=== PATIENT | male | born 1950 | race Caucasian/White ===

== ENCOUNTER → 2019-06-20 17:00 | Outpatient (CLI) | payer MEDICARE, SELFPAY ==
--- NOTE | 2019-06-24 15:22 | PM.PFT.1 ---
Pulmonary Function Test Referral & Results Date Patient Seen: 06/20/19 Requesting provider: Gaudencio Joel Results: The spirometry demonstrates an FVC of 3.10 L which is 65% of predicted. The FEV1 was measured at 1.23 L which is 35% of predicted. The FEV1/FVC ratio was 40 which is 53% of predicted. Following the administration of bronchodilator there was a 64% improvement in FEV1 and a 255% improvement in FEF 25-75%. Lung volumes show an SVC of 3.29 L which is 68% of predicted. The diffusing capacity was measured at 17.72 which is 52% of predicted. No hemoglobin value was provided, so no correction for potential anemia could be made, if appropriate. The maximum voluntary ventilation was reduced Interpretation: This study demonstrates moderately severe obstructive lung disease with evidence of significant benefit following bronchodilator administration based on significant improvements in FEV1 and FEF 25-75% as above There is also mild restrictive lung disease There is also moderate disease of the capillary alveolar level based on reduction in diffusing capacity
== END ==
PROVIDERS: Visit Provider Family Medicine
DX: J98.8 Other specified respiratory disorders (principal); R06.02 Shortness of breath; F17.200 Nicotine dependence, unspecified, uncomplicated
CPT/HCPCS: 94060; 94726; 94729

== ENCOUNTER → 2020-11-09 07:53 | Outpatient (CLI) | payer MEDICARE, SELFPAY ==
[2020-11-09 09:34] LABS: Alanine Aminotransferase 20 IU/L (<50); Albumin Globulin Ratio 1.7 (1.0-2.8); Alkaline Phosphatase 65 U/L (38-126); Aspartate Aminotransferase 22 IU/L (17-59); BUN Creatinine Ratio 14.9 (6-22); Bilirubin Total 0.5 mg/dL (0.2-1.3); Blood Urea Nitrogen 18 mg/dL (9-20); Calcium 9.4 mg/dL (8.4-10.2); Carbon Dioxide 30 mmol/L (22-32); Chloride 103 mmol/L (98-107); Cholesterol 195 mg/dL (140-199); Estimated Glomerular Filt Rate 59.6 mL/min (>60); Globulin 2.4 g/dL (1.7-4.1); Glucose 105 mg/dL (80-110); HDL Cholesterol 55 mg/dL (40-60); HEMOLYSIS < 15 (0-50); LDL Cholesterol Calculated 119 mg/dL (<100); Potassium 4.6 mmol/L (3.4-5.1); Sodium 139 mmol/L (137-145); Total Protein 6.4 g/dL (6.3-8.2); Triglycerides 104 mg/dL (35-150)
[2020-11-09 10:00] LABS: TSH w/ Reflex to FT4 1.02 uIU/mL (0.47-4.68)
== END ==
PROVIDERS: PCP Family Medicine; Referring Provider Family Medicine; Visit Provider Family Medicine
DX: E78.5 Hyperlipidemia, unspecified (principal); F41.0 Panic disorder [episodic paroxysmal anxiety]
CPT/HCPCS: 36415; 80053; 80061; 84443

== ENCOUNTER → 2022-01-03 09:35 | Outpatient (CLI) | payer MEDICARE, SELFPAY ==
[2022-01-03 10:47] LABS: Creatinine Urine Random 78.1 mg/dL
[2022-01-03 10:52] LABS: Microalbumi Creatinin Ratio Ur 10.2 ug/mg CR (<30); Microalbumin Urine Random 0.8 mg/dL (0-1.6)
[2022-01-03 11:33] LABS: Add Manual Diff / Slide Review NO; Basophils Absolute Auto 100 /uL (0-100); Basophils Percent Auto 1.4 % (0-2); Eosinophils Absolute Auto 200 /uL (0-450); Hemoglobin 13.6 g/dL (13.5-17.5); Lymphocytes Absolute Auto 1400 /uL (1100-4500); Lymphocytes Percent Auto 22.7 % (25-40); Mean Corpuscular HGB Conc 34.1 % (30-36); Mean Corpuscular Hemoglobin 31.6 PG (26-34); Mean Corpuscular Volume 92.6 fL (80-100); Monocytes Absolute Auto 400 /uL (0-900); Monocytes Percent Auto 6.4 % (3-14); Neutrophils Absolute Auto 4000 /uL (1500-7000); Neutrophils Percent Auto 65.5 % (50-75); Platelet Count 252 X10^3/uL (150-400); Red Blood Cell Count 4.32 X10^6/uL (4.5-5.9); Red Cell Distribution Width 13.3 % (11.6-14.8); White Blood Cell Count 6.1 X10^3/uL (4.5-11.0)
[2022-01-03 11:50] LABS: Alanine Aminotransferase 19 IU/L (<50); Albumin Globulin Ratio 1.6 (1.0-2.8); Alkaline Phosphatase 57 U/L (38-126); Aspartate Aminotransferase 26 IU/L (17-59); BUN Creatinine Ratio 12.3 (6-22); Bilirubin Total 0.7 mg/dL (0.2-1.3); Blood Urea Nitrogen 13 mg/dL (9-20); Calcium 9.2 mg/dL (8.4-10.2); Carbon Dioxide 27 mmol/L (22-32); Chloride 105 mmol/L (98-107); Cholesterol 182 mg/dL (140-199); Estimated Glomerular Filt Rate > 60 mL/min (>60); Globulin 2.5 g/dL (1.7-4.1); Glucose 84 mg/dL (80-110); HDL Cholesterol 70 mg/dL (40-60); HEMOLYSIS < 15 (0-50); LDL Cholesterol Calculated 97 mg/dL (<100); Potassium 4.3 mmol/L (3.4-5.1); Sodium 139 mmol/L (137-145); Total Protein 6.5 g/dL (6.3-8.2); Triglycerides 76 mg/dL (35-150)
[2022-01-03 12:14] LABS: Prostate Specific Antigen Scrn 1.99 ng/mL (0.1-4.0)
[2022-01-03 12:25] LABS: TSH w/ Reflex to FT4 0.84 uIU/mL (0.47-4.68)
== END ==
PROVIDERS: PCP Family Medicine; Referring Provider Family Medicine; Visit Provider Family Medicine
DX: E78.2 Mixed hyperlipidemia (principal); Z12.5 Encounter for screening for malignant neoplasm of prostate; I10 Essential (primary) hypertension; J44.9 Chronic obstructive pulmonary disease, unspecified; N40.0 Benign prostatic hyperplasia without lower urinary tract symptoms
CPT/HCPCS: 36415; 80053; 80061; 82043; 82570; 84443; 85025; G0103

== ENCOUNTER → 2023-11-21 11:09 | Outpatient (CLI) | payer MEDICARE, SELFPAY ==
[2023-11-21 12:32] LABS: Add Manual Diff / Slide Review NO; Basophils Absolute Auto 100 /uL (0-100); Basophils Percent Auto 2.2 % (0-2); Eosinophils Absolute Auto 200 /uL (0-450); Eosinophils Percent Auto 4.1 % (2-4); Hematocrit 41.7 % (41-53); Hemoglobin 14.2 g/dL (13.5-17.5); Lymphocytes Absolute Auto 1500 /uL (1100-4500); Lymphocytes Percent Auto 25.7 % (25-40); Mean Corpuscular HGB Conc 34.1 % (30-36); Mean Corpuscular Volume 93.7 fL (80-100); Monocytes Absolute Auto 400 /uL (0-900); Monocytes Percent Auto 7.7 % (3-14); Neutrophils Absolute Auto 3500 /uL (1500-7000); Neutrophils Percent Auto 60.3 % (50-75); Platelet Count 265 X10^3/uL (150-400); Red Blood Cell Count 4.45 X10^6/uL (4.5-5.9); Red Cell Distribution Width 13.2 % (11.6-14.8); White Blood Cell Count 5.8 X10^3/uL (4.5-11.0)
[2023-11-21 12:52] LABS: HEMOLYSIS < 15 (0-50)
[2023-11-21 13:01] LABS: Alanine Aminotransferase 21 IU/L (<50); Albumin Globulin Ratio 1.6 (1.0-2.8); Alkaline Phosphatase 71 U/L (38-126); Aspartate Aminotransferase 25 IU/L (17-59); BUN Creatinine Ratio 13.1 (6-22); Bilirubin Total 0.7 mg/dL (0.2-1.3); Blood Urea Nitrogen 13 mg/dL (9-20); Calcium 9.4 mg/dL (8.4-10.2); Carbon Dioxide 30 mmol/L (22-32); Chloride 105 mmol/L (98-107); Cholesterol 191 mg/dL (140-199); Estimated Glomerular Filt Rate > 60 mL/min (>60); Globulin 2.5 g/dL (1.7-4.1); Glucose 101 mg/dL (80-110); HDL Cholesterol 71 mg/dL (40-60); LDL Cholesterol Calculated 109 mg/dL (<100); Potassium 4.3 mmol/L (3.4-5.1); Sodium 137 mmol/L (137-145); Total Protein 6.5 g/dL (6.3-8.2); Triglycerides 54 mg/dL (35-150)
[2023-11-21 13:33] LABS: TSH w/ Reflex to FT4 0.57 uIU/mL (0.47-4.68)
[2023-11-21 18:11] LABS: Hep C Virus Ab w/Reflex Quant NEGATIVE s/c (NEGATIVE)
[2023-11-22 11:33] LABS: Prostate Specific Antigen Scrn 2.41 ng/mL (0.1-4.0)
== END ==
PROVIDERS: PCP Family Medicine; Referring Provider Family Medicine; Visit Provider Family Medicine
DX: F31.9 Bipolar disorder, unspecified (principal); I10 Essential (primary) hypertension; Z12.5 Encounter for screening for malignant neoplasm of prostate; J44.9 Chronic obstructive pulmonary disease, unspecified; E78.5 Hyperlipidemia, unspecified; N40.0 Benign prostatic hyperplasia without lower urinary tract symptoms
CPT/HCPCS: 36415; 80053; 80061; 84443; 85025; 86803; G0103

== ENCOUNTER → 2023-11-22 13:16 | Outpatient (CLI) | payer MEDICARE, SELFPAY ==
[2023-11-22 16:35] LABS: Creatinine Urine Random 317.7 mg/dL
[2023-11-22 16:39] LABS: Microalbumi Creatinin Ratio Ur 3.4 ug/mg CR (<30); Microalbumin Urine Random 1.1 mg/dL (0-1.6)
== END ==
PROVIDERS: PCP Family Medicine; Referring Provider Family Medicine; Visit Provider Family Medicine
DX: F31.9 Bipolar disorder, unspecified (principal); I10 Essential (primary) hypertension; J44.9 Chronic obstructive pulmonary disease, unspecified; E78.5 Hyperlipidemia, unspecified; N40.0 Benign prostatic hyperplasia without lower urinary tract symptoms
CPT/HCPCS: 82043; 82570

== ENCOUNTER 2024-10-28 10:47 | Day surgery (SDC) | payer MEDICARE, MEDICAID, SELFPAY ==
[2024-10-20 15:20] VITALS: BMI 28.4
[2024-10-28] VITALS (8 sets, daily range): BP systolic 123–168; BP diastolic 72–97; PULSE 59–68; RESP 12–16; TEMP 36.2–36.3; O2SAT 96–100; BMI 28.4
[2024-10-28] MEDS: LACTATED RINGERS 1,000 ML 42 ML IV (10:54)
--- NOTE | 2024-10-28 11:12 | P.HP_ITS ---
History of Present Illness History of Present Illness Date Patient Seen: 10/28/24 Time Patient Seen: 11:12 Chief complaint: Left Hernia Repair - Inguinal Narrative: 74-year-old white male, previously had seen Dr. Lee regarding his recurrent left inguinal hernia. He was instructed to quit smoking. I am suspicious that he is still smokes since our last office visit, but he desires to proceed with an increased risk of recurrence and post-operative pain. He does not have any obstructive symptoms, but has chronically incarcerated fat [facility] Medical History Onychomycosis Hypertension Macular degeneration Sleep apnea (~1997) COPD (chronic obstructive pulmonary disease) (~2018) Substance abuse (~2001) Anxiety (~1999) Measles (~1955) Chicken pox (~1956) Glaucoma Cataracts, bilateral (~2017) BPH (benign prostatic hyperplasia) Hyperlipidemia Panic disorder Major depressive disorder, recurrent, severe w/o psychotic behavior (~1989) Surgical History Anesthesia Amputation of left middle finger (~2006) History of tonsillectomy (~1995) History of hernia repair (~2001) Family History Father Hypertension Grandmother Stroke Grandmother Depression Anxiety Mental health problem Social History marital status: unmarried,single household members: none lives independently: Yes occupational status: previously employed Smoking Status: Former smoker alcohol intake: former substance use type: does not use Meds Home Medications and Allergies Home Medications Medication Instructions Recorded Confirmed Type amlodipine 5 mg tablet 10 mg (2 x 5 mg) PO DAILY #180 tabs 11/22/23 10/28/24 Rx atorvastatin 20 mg tablet 20 mg PO DAILY #90 tabs 11/22/23 10/28/24 Rx tamsulosin 0.4 mg capsule 0.4 mg PO BEDTIME #90 caps 11/22/23 09/17/24 Rx losartan 50 mg tablet 25 mg PO DAILY 12/10/23 10/28/24 History trazodone 50 mg tablet 100 mg (2 x 50 mg) PO BEDTIME PRN 03/14/24 10/28/24 Rx insomnia #60 tabs varenicline tartrate 0.5 mg (11)-1 See Rx Instructions PO PER PKG DIR 07/14/24 10/28/24 Rx mg (42) tablets in a dose pack #53 ea (Chantix Starting Month Box) aspirin PO .prn 09/17/24 09/17/24 History ibuprofen PO .prn 09/17/24 09/17/24 History aripiprazole 10 mg tablet 10 mg PO BEDTIME #30 tabs 10/13/24 10/28/24 Rx bupropion HCl 150 mg tablet,12 hr 150 mg PO BID #60 ea 10/13/24 10/28/24 Rx sustained-release hydroxyzine HCl 50 mg tablet 50 mg PO BID PRN severe anxiety 10/13/24 10/28/24 Rx #30 tabs Allergies Allergy/AdvReac Type Severity Reaction Status Date / Time tree and shrub pollen Allergy Mild Congested Verified 10/28/24 10:53 dark chocolate Allergy Intermediate hives, Uncoded 09/17/24 12:55 sinus problems mold Allergy Mild Headache, Uncoded 09/17/24 12:55 sinus stuff Review of Systems Review of Systems ROS: Yes All systems reviewed with the patient and are negative except as otherwise documented Exam Narrative Exam Narrative: Gen: NAD, sitting comfortably in bed, appears well HEENT: Sclera are anicteric, head is normocephalic and atraumatic, trachea is midline. CV: RRR, no JVD Resp: clear to auscultation bilaterally, equal chest wall movement bilaterally Abd: soft, nontender, normoactive bowel sounds. Recurrent left inguinal hernia Ext: no edema, full range of motion Neuro: Cranial nerves II-XII grossly intact, no focal deficits Skin: No erythema or ecchymosis Assessment & Plan Assessment and plan (1) Recurrent left inguinal hernia: Status: Acute (2) Bipolar depression: Status: Acute (3) Smoker: Status: Acute Assessment & Plan narrative: Risks include but are not limited to bleeding, infection, 5% chance of chronic pain, 1 in a 1000 chance of needing mesh explantation in the future, 2% chance of recurrence of the hernia. Risks of observation include a 50% chance over the next 10 years of worsening pain that would drive him to have surgery regardless, unlikely chance of incarceration or strangulation. Patient agrees to proceed with: Open repair of recurrent left inguinal hernia with mesh Time-Based Coding :: [TOTAL MINUTES] spent with patient and on the chart (including review of chart, obtaining history, exam, reviewing outside data, placing orders, documenting exam and treatment plan, and counseling patient) on [DATE]. PROFEE Correspondence Section Supervisor Document charge(s): No
[2024-10-28] MEDS: CEFAZOLIN 2 GM/100 ML PREMIX 100 ML IV (11:33)
--- NOTE | 2024-10-28 11:39 | SUR.OPER ---
Supine on padded OR bed, head on pillow, arms secured on padded arm boards at <90 degrees abduction, legs uncrossed, safety belt at thigh, tape over blanket over lower legs.
[2024-10-28] MEDS: BUPIVACAINE 0.5% W/ EPI (PF) 30 ML VIAL 20 ML INJ (11:43)
[2024-10-28] MEDS: LIDOCAINE 1% 20 ML INJ (11:44)
--- NOTE | 2024-10-28 12:19 | PM.OP.1 ---
Operative Date/Time/Diagnoses Date of procedure: 10/28/24 Time of procedure: 12:19 Pre-op diagnosis: recurrent left inguinal hernia Post-op diagnosis: same Procedure & Clinicians Procedure: Open repair of recurrent left inguinal hernia with mesh Same procedure as scheduled: Yes Indications: Symptomatic recurrent left inguinal hernia Surgeon: Chuy Lindquist Telephone Collector: Po Dunbar Click Yes if Unassisted: No Anesthesia Type: MAC +/- Operative Notes Findings: Indirect defect with large cord lipoma Closure Type: primary Specimen(s): none sent Prosthetic devices, grafts, tissues, transplants, or devices: Large Bard PerFix plug and patch Estimated Blood Loss (mL): 15 Blood products transfused: none Procedure in detail: Patient was brought to the operating room suite. General anesthesia was induced. The groin was shaved prepped and draped in the usual fashion. Total 30 mL of 0.5% Marcaine was used to perform an ilioinguinal nerve block and cord block and field block. Transverse incision was made over the groin and carried down to the external oblique fibers with Bovie electrocautery. The external oblique fibers were opened along the direction of the fibers and retracted superiorly and inferiorly. The floor of the inguinal canal was inspected to evaluate for direct defect. The cord structures were ensnared with a [place] drain. There was an indirect defect that was dissected free from the cord structures and along with the large cord lipoma was reduced back into the abdomen. A large Bard PerFix plug was placed through the indirect defect. A patch was placed over the floor. 2-0 PDS was used to affix the patch from Deshawn's ligament with a running stitch inferiorly along the inguinal ligament. The 2 leaflets and plug were all brought together and affixed to recreate the deep ring. Another 2-0 PDS suture was used to affix the mesh to the conjoined tendon thus reapproximating the floor. The ilioinguinal nerve was identified and neurolysis was performed. External oblique was closed with running 3-0 Vicryl. Merlin's closed 3-0 Vicryl. Skin was closed with 4-0 Monocryl and Dermabond. Patient tolerated the procedure well was transferred to PACU in stable condition for anticipated same-day discharge. Complications: none Post-operative Condition: stable Disposition: PACU Plan for aftercare: Home
[2024-10-28] MEDS: ACETAMINOPHEN 325 MG TABLET 975 MG PO (13:26)
[2024-10-28] MEDS: KETOROLAC 30 MG/ML VIAL IV (13:27)
== END 2024-10-28 14:05 | disposition home or self-care (01) ==
PROVIDERS: PCP Family Medicine; Referring Provider Surgery; Visit Provider Surgery
PROC: (CPT 49520; principal; 2024-10-28 12:15)
DX: K40.91 Unilateral inguinal hernia, without obstruction or gangrene, recurrent (principal); F17.200 Nicotine dependence, unspecified, uncomplicated; D17.6 Benign lipomatous neoplasm of spermatic cord
CPT/HCPCS: 49520; C1781; J0690; J1885; J2704

== ENCOUNTER → 2024-11-06 14:09 | Outpatient (CLI) | payer MEDICARE, MEDICAID, SELFPAY ==
--- NOTE | 2024-11-06 14:11 | DI.RAD.S_ITS ---
PROCEDURE: XR LUMBAR SPINE 2-3V INDICATIONS: pain xyears , quynh bending TECHNIQUE: 3 views of the lumbar spine were acquired. COMPARISON: None. FINDINGS: Lumbar spine curvature and alignment: Mild rightward curve of the lower thoracic and upper lumbar spine appreciated. Grade 1 L5-S1 spondylolisthesis featuring 11 mm of L5 anterior subluxation appreciated. Possible spondylitic defects at L5-S1 noted. Bones: There are no other osseous abnormalities. Disc spaces: Moderate L5-S1 degenerative disc and facet disease seen. Soft tissues: No soft tissue swelling, calcification or mass. IMPRESSION: Moderate L5-S1 degenerative disc and facet disease. Grade 1 L5-S1 spondylolisthesis with possible spondylitic defects. If more specific evaluation is required if surgery is contemplated, suggest either lumbar MRI or CT Dictated by: Osito Burgos M.D. on 11/07/2024 at 9:28 Approved by: Osito Burgos M.D. on 11/07/2024 at 9:30
[2024-11-06 17:18] LABS: Alanine Aminotransferase 22 IU/L (<50); Albumin Globulin Ratio 1.7 (1.0-2.8); Alkaline Phosphatase 57 U/L (38-126); Aspartate Aminotransferase 26 IU/L (17-59); BUN Creatinine Ratio 14.9 (6-22); Bilirubin Total 0.4 mg/dL (0.2-1.3); Blood Urea Nitrogen 15 mg/dL (9-20); Calcium 9.4 mg/dL (8.4-10.2); Carbon Dioxide 28 mmol/L (22-32); Chloride 102 mmol/L (98-107); Estimated Glomerular Filt Rate > 60 mL/min (>60); Globulin 2.4 g/dL (1.7-4.1); Glucose 85 mg/dL (80-110); HEMOLYSIS < 15 (0-50); Potassium 4.6 mmol/L (3.4-5.1); Sodium 138 mmol/L (137-145); Total Protein 6.4 g/dL (6.3-8.2)
== END ==
PROVIDERS: PCP Family Medicine; Referring Provider Physician Assistant; Visit Provider Physician Assistant
DX: M51.369 Other intervertebral disc degeneration, lumbar region without mention of lumbar back pain or lower extremity pain (principal); M43.17 Spondylolisthesis, lumbosacral region; M47.817 Spondylosis without myelopathy or radiculopathy, lumbosacral region
CPT/HCPCS: 36415; 72100; 80053

== ENCOUNTER → 2025-04-17 14:07 | Outpatient (CLI) | payer MEDICARE, MEDICAID, SELFPAY ==
--- NOTE | 2025-04-17 14:11 | DI.RAD.S_ITS ---
PROCEDURE: XR LUMBAR SPINE 2-3V INDICATIONS: listhesis TECHNIQUE: 3 views of the lumbar spine were acquired. COMPARISON: [facility], CR, XR LUMBAR SPINE 2-3V, 11/06/2024, 13:22. FINDINGS: Bones: 5 [id number] vertebrae are present. 1.1 cm spondylolisthesis again seen at the L5-S1 level. Multilevel disc height loss with endplate sclerosis and spurring, most notably and severe at the L5-S1 level. Moderate facet joint arthropathy L4-L5 and L5-S1. No vertebral body compression fractures. No suspicious bony lesions. Flexion extension views demonstrating limited range of motion, with 1.1 cm anterolisthesis of L5 on S1 . Possible pars defects. Soft tissues: Overlying bowel gas pattern is normal. No suspicious soft tissue calcifications. IMPRESSION: Possible pars defects at L5-S1. There is 1.1 cm anterolisthesis of L5 on S1, stable with flexion and extension. Dictated by: Logan Catherine Wai Interpreted: Myke Fu MD on 04/17/2025 at 14:57 Transcribed by: WALKER on 04/17/2025 at 14:58 Approved by: Myke Fu M.D. on 04/23/2025 at 8:04
== END ==
PROVIDERS: PCP Family Medicine; Referring Provider Family Medicine; Visit Provider Physical Medicine & Rehabilitation
DX: M43.17 Spondylolisthesis, lumbosacral region (principal); M47.816 Spondylosis without myelopathy or radiculopathy, lumbar region; M47.817 Spondylosis without myelopathy or radiculopathy, lumbosacral region
CPT/HCPCS: 72100